=== PATIENT | female | born 1970 | race African-American/Black ===

== ENCOUNTER → 2018-11-14 | Outpatient (CLI) | payer OTHER ==
[~2018-11-14] MED LIST: AMLODIPINE BESYL5 MG PO; BENTYL 20 MG TA20 M1 PO; HYDROCHLOROTHIA25 M1 PO; LISINOPRIL10 MG PO; MEDROLDOSEPACK PO; MICRO-K 10 MEQ10 MEQ PO; OMEPRAZOLE20 MG PO; PERCOCET 5-3251 EACH PO
--- NOTE | 2018-11-16 13:07 | PATH ---
[facility] [address] [place] [address] PATHOLOGY RPT PROCEDURE Name: CASI REEVES Room #: [facility].#: [id number] Admission: 11/14/18 Date of : 72 Discharge: Report #: [id number] Path Case #: [id number] Note [facility] Accession Number: [id number] TESTS RESULT FLAG UNITS REF RANGE LAB Clinician Provided Cytology Information No. of containers..01 Other (Miscellaneous) Source: 01 LEFT PAROTID NECK FN DIAGNOSIS: 02 LEFT PAROTID NECK FN NEGATIVE FOR CARCINOMA. LYMPHOCYTES AND HISTIOCYTES ARE PRESENT, FINDINGS COULD BE CONSISTENT WITH A REACTIVE LYMPH NODE. NO DEFINITE EPITHELIAL CELLS PRESENT. THIS INTERPRETATION INCLUDES EVALUATION OF A CELL BLOCK. Signed out by: 02 Roland Rosa MD, Pathologist NPI- [id number] Performed by: 01 Chaz Evangelista, Safety Security Officer ([facility]) Gross description: 01 20ML, RED, CLOUDY /LCS FLAG LEGEND: L-Low Normal,H-High Normal,LL-Alert Low,HH-Alert High <-Panic Low,>-Panic High,A-Abnormal,AA-Critical Abnormal Performed at: [address] [place] [address] Micheal Chavez MD, [address] [address] Gricelda Barroso MD, Specimen Comment: A courtesy copy of this report has been sent to Specimen Comment: [phone]. Specimen Comment: Report sent to Specimen Comment: A duplicate report has been generated due to demographic updates. Performed at: [address], [place], [place] [id number] MD Micheal Chavez MD Phone: [phone]
== END | disposition home or self-care (01) ==
LOC: ULTRA 08:21
DX: K11.8 Other diseases of salivary glands (principal); Z79.899 Other long term (current) drug therapy; Z88.6 Allergy status to analgesic agent